=== PATIENT | male | born 1960 | race Caucasian/White ===

== ENCOUNTER 2019-10-14 15:11 | Outpatient (CLI) | payer MEDICARE, SELFPAY ==
--- NOTE | ~2019-10-14 | CT_ITS ---
EXAMINATION: CT soft tissue neck chest w DATE: 10/14/2019 16:10 INDICATION: Chronic hoarseness. TECHNIQUE: Computed tomography (CT) of the neck and chest was performed with 75 mL Omnipaque-350 intr avenous contrast. Automated exposure control and iterative reconstruction technique were employed. Th e dose-length product was 775.22 mGy-cm. COMPARISON: None FINDINGS: NECK CT: There are no pathologically enlarged lymph nodes. Left-sided vocal cord paralysis is noted. There is plaque in the proximal internal carotid arteries with less than 50% stenosis relative to nor mal distal artery lumen diameters. There is severe cervical spondylosis. CHEST CT: There is mild emphysema. There is mild atelectasis bilaterally. A calcified left lung nodul e and calcified left hilar lymph nodes are consistent with old granulomatous disease. There is a 4.5 x 1.8 cm mass in left upper lobe. There are airspace and groundglass opacities peripheral to the mass . There is confluent lymphadenopathy involving the left hilar, apical pulmonary window, and prevascul ar chains. The camilo mass measures 8.1 x 4.4 cm. There is mild stenosis of the left mainstem bronchus and left upper lobe bronchus. There is severe stenosis of left main pulmonary artery due to extrinsi c mass effect. The heart size is normal. No pericardial effusion. Calcifications in the spleen are co nsistent with old granulomatous disease. There is mild thoracic spondylosis. IMPRESSION: 1. Left lung upper lobe mass, consistent with primary bronchogenic carcinoma. Postobstructive pneumon ia in left upper lobe. 2. Bulky left hilar and mediastinal lymphadenopathy, consistent with metastatic disease. Bronchoscopy is recommended for diagnosis. 3. 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 Reviewed, dictated and finalized at location A. IMPRESSION: 1. Left lung upper lobe mass, consistent with primary bronchogenic carcinoma. P ostobstructive pneumonia in left upper lobe. 2. Bulky left hilar and mediastinal lymphadenopathy, consistent with metastatic disease. Bronchoscopy is recommended for diagnosis. 3. Left-sided vocal cord paralysis secondary to recurrent laryngeal nerve invol vement by mediastinal camilo metastatic disease.
== END 2019-10-14 15:12 | disposition home or self-care (01) ==
PROVIDERS: PCP Emergency Medicine; Visit Provider Otolaryngology
DX: R49.0 Dysphonia (principal); R91.8 Other nonspecific abnormal finding of lung field
CPT/HCPCS: 70491; 71260; Q9967

== ENCOUNTER 2020-01-05 04:17 | Inpatient (IN) | payer MEDICARE, SELFPAY ==
[2020-01-05] VITALS (38 sets, daily range): BP systolic 63–127; BP diastolic 26–106; PULSE 90–121; RESP 14–30; TEMP 35.8–36.9; O2SAT 89–100; BMI 21.8
--- NOTE | ~2020-01-05 | XR_ITS ---
EXAMINATION: XR chest 1V portable EXAM DATE: 01/05/2020 04:31 INDICATION: Cancer. Shortness of breath. Chest pain. TECHNIQUE: Portable AP frontal chest x-ray was obtained. Correlation is made to chest CT 10/14/2019. FINDINGS: Left suprahilar mass. The lungs are otherwise clear. There are no pleural effusions. The cardiomediastinal silhouette is within normal limits. There is no pneumothorax suspected. The bones and soft tissues are unremarkable. IMPRESSION: Left suprahilar mass. Reviewed, dictated and finalized at location A. IMPRESSION: Left suprahilar mass.
--- NOTE | ~2020-01-05 | XR_ITS ---
EXAMINATION: XR chest 1V portable EXAM DATE: 01/06/2020 05:57 INDICATION: Respiratory failure. Balloon pump. TECHNIQUE: Portable AP frontal chest x-ray was obtained. Comparison is made to prior examination from 01/05/2020. FINDINGS: Endotracheal tube tip is 6 centimeters above the marly (ideal range is between 2 to 5 cm). There is a nasogastric tube seen with tip collimated off the study, but below the left hemidiaphragm . There is extensive bilateral ARDS, edema or pneumonia. Underlying left suprahilar mass obscured by th is acute airspace disease. No pneumothorax or pleural effusion. Cardiomediastinal silhouette is cait l. There are mild bony degenerative changes. There is no significant interval change. IMPRESSION: 1. Extensive ARDS, edema or pneumonia. 2. Endotracheal tube could be safely advanced 1-2 cm. Reviewed, dictated and finalized at location A.
--- NOTE | ~2020-01-05 | XR_ITS ---
EXAMINATION: XR chest 1V portable DATE: 01/07/2020 13:39 INDICATION: Worsened oxygen requirements. TECHNIQUE: A single frontal view of the chest was obtained. COMPARISON: Chest single view at 4:56 AM, chest CT 10/14/2019 FINDINGS: There are airspace opacities in all lung zones bilaterally with a perihilar predominance, l eft worse than right. There is a left upper lobe mass. There is left hilar and mediastinal lymphadeno francisco. No pleural effusion or pneumothorax. The heart size is normal. The endotracheal tube tip is 7. 2 cm above the marly. The nasogastric tube tip is beyond the inferior margin of the radiograph, but at least to the stomach. An intra-aortic balloon pump is noted. IMPRESSION: 1. Worsened diffuse lung disease, likely a combination of pulmonary edema and left upper lobe postobs tructive pneumonia. 2. Left upper lobe mass, consistent with primary bronchogenic carcinoma. 3. Left hilar and mediastinal lymphadenopathy, consistent with metastatic disease. Reviewed, dictated and finalized at location A. IMPRESSION: 1. Worsened diffuse lung disease, likely a combination of pulmonary edema and l eft upper lobe postobstructive pneumonia. 2. Left upper lobe mass, consistent with primary bronchogenic carcinoma. 3. Left hilar and mediastinal lymphadenopathy, consistent with metastatic disea se.
--- NOTE | ~2020-01-05 | XR_ITS ---
EXAMINATION: XR chest 1V portable EXAM DATE: 01/07/2020 06:27 INDICATION: Respiratory failure. Balloon pump. TECHNIQUE: Portable AP frontal chest x-ray was obtained. Comparison is made to prior examination from 01/06/2020. FINDINGS: Endotracheal tube tip is 7 centimeters above the marly (ideal range is between 2 to 5 cm). There is a nasogastric tube seen with tip collimated off the study, but below the left hemidiaphragm . There is extensive bilateral ARDS, edema or pneumonia. Underlying left suprahilar mass obscured by th is acute airspace disease. No pneumothorax or pleural effusion. Cardiomediastinal silhouette is cait l. There are mild bony degenerative changes. This exam is better penetrated than the previous one, bu t likely without significant interval change. IMPRESSION: 1. Extensive ARDS, edema or pneumonia. 2. Endotracheal tube could be safely advanced 2 cm. Reviewed, dictated and finalized at location A.
--- NOTE | ~2020-01-05 | XR_ITS ---
EXAMINATION: XR chest 1V portable EXAM DATE: 01/08/2020 06:09 INDICATION: Respiratory failure. TECHNIQUE: Portable AP frontal chest x-ray was obtained. Comparison is made to prior examination from 01/06/2020. FINDINGS: Endotracheal tube tip is 7 centimeters above the marly, still below the clavicular head le baljit in this patient with chronic hyperinflation. There is a nasogastric tube seen with tip collimated off the study, but below the left hemidiaphragm. There is extensive bilateral ARDS, edema or pneumonia. Underlying left suprahilar mass obscured by th is acute airspace disease. Small bilateral pleural effusions. Cardiomediastinal silhouette is normal. There are mild bony degenerative changes. Compared to last couple of days, pleural effusions have been developing, difficult to determine any s ignificant change in airspace disease. IMPRESSION: 1. Extensive ARDS, edema or pneumonia. 2. Small pleural effusions. 3. Left suprahilar malignancy. Reviewed, dictated and finalized at location A.
--- NOTE | ~2020-01-05 | XR_ITS ---
EXAMINATION: XR chest ET placement, XR abdomen NG/feed tube insert DATE: 01/05/2020 17:24 INDICATION: Endotracheal tube placement and repositioning. Orogastric tube placement. TECHNIQUE: 1. Frontal view of the chest was obtained on 3 images. 2. Frontal view of the abdomen was obtained. COMPARISON: Chest radiograph dated 01/05/2020 at 9:28 AM FINDINGS: Chest: On the final image the endotracheal tube tip is positioned 6.4 cm above the marly. Again seen are di ffuse interstitial and groundglass airspace opacities throughout both lungs. More dense left hilar ma ss. No pleural effusion or pneumothorax. Heart size is normal. ABDOMEN: Nasogastric tube tip in the body of the stomach with proximal side-port at the level of gastroesophag eal junction. There is contrast opacification of the kidneys with excreted contrast in the bilateral renal collecting systems. Multiple calcified granulomata in the spleen. IMPRESSION: 1. Endotracheal tube tip 6.4 cm above the marly. Consider advancement by 4 cm. 2. Orogastric tube in the stomach. Could consider advancement by a couple centimeters place the proxi mal side-port below the level of the gastroesophageal junction. 3. Left hilar mass consistent with reported history of lung cancer. 4. Bilateral increased interstitial and groundglass opacities, left greater than right most likely as ymmetric pulmonary edema with differential including pneumonia. Reviewed, dictated and finalized at location A. IMPRESSION: 1. Endotracheal tube tip 6.4 cm above the marly. Consider advancement by 4 cm. 2. Orogastric tube in the stomach. Could consider advancement by a couple centi meters place the proximal side-port below the level of the gastroesophageal helena ction. 3. Left hilar mass consistent with reported history of lung cancer. 4. Bilateral increased interstitial and groundglass opacities, left greater daren n right most likely asymmetric pulmonary edema with differential including pneu monia.
--- NOTE | ~2020-01-05 | CT_ITS ---
EXAMINATION: CT brain wo con EXAM DATE: 01/05/2020 04:41 INDICATION: Lung cancer with brain metastases. Syncope. Fall. TECHNIQUE: Spiral CT of the head was performed without contrast. Axial, coronal and sagittal images were reviewed. The dose-length product (DLP) for this examination was 681.00 mGy-cm. The exposure w as tailored according to patient size, and iterative reconstruction (ASIR) was used as additional dos e reduction technique. There is no prior study for comparison. FINDINGS: There is no acute intraparenchymal hemorrhage. No evidence of intraparenchymal brain mass lesion. No evidence of acute infarction. There is no mass effect or midline shift. The ventricles are normal in size. There are no extra-axial collections. There are no acute calvarial fractures. T he orbits are unremarkable. Soft tissue is unremarkable. The visualized sinuses and mastoid air clifton ls are well aerated. IMPRESSION: 1. Unremarkable head CT examination. Reviewed, dictated and finalized at location A.
--- NOTE | ~2020-01-05 | XR_ITS ---
EXAMINATION: XR chest 1V portable EXAM DATE: 01/05/2020 09:36 INDICATION: Isolation precautions. Dyspnea. TECHNIQUE: Portable AP frontal chest x-ray was obtained. Comparison is made to prior examination from 430 a.m. same date. FINDINGS: Rapid development of extensive bilateral ARDS, edema or pneumonia. Underlying left suprahil ar mass now being obscured by this airspace disease. No pneumothorax or pleural effusion. Cardiomedia stinal silhouette is normal. There are mild bony degenerative changes. IMPRESSION: Rapid interval development of extensive ARDS, edema or pneumonia. Reviewed, dictated and finalized at location A.
--- NOTE | 2020-01-05 04:20 | ECG_ITS ---
Measurements Intervals [place] Rate: 109 P: 99 [place]: 146 QRS: 70 QRSD: 156 T: 99 QT: 369 QTc: 497 Interpretive Statements SINUS TACHYCARDIA RIGHT BUNDLE BRANCH BLOCK ANTEROLATERAL ST ELEVATION MYOCARDIAL INJURY- ACUTE BASELINE ARTIFACT- I, II, V1 ABNORMAL ECG Electronically Signed On 01-05-2020 12:21:19 CDT by Vincent Serna D.O.
--- NOTE | 2020-01-05 04:27 | ED.CHESTPAIN ---
HPI - Chest Pain General Chief Complaint: Chest Pain Stated Complaint: stemi History of Present Illness HPI narrative: Patient is a 59-year-old male who presents to the ER with chest pain. STEMI activated in the field by EMS. 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 He is undergoing chemotherapy at [facility]. Patient has history of congestive heart failure. No known coronary disease reported. Patient reports chest pain began at about 345. Its across the entirety of his chest and goes down both arms. Is associated with an episode of syncope where his states he struck his head on the ground. Initially for EMS patient was hypotensive, altered, and hypoxic. Related Data Home Medications Medication Instructions Recorded Confirmed albuterol sulfate 90 mcg/actuation 1 inhalation INHALATION Q4H 03/23/19 aerosol inhaler aspirin 81 mg tablet,delayed 81 mg PO DAILY 03/23/19 release fluticasone propionate 50 1 inhalation INHALATION BID each 03/23/19 mcg/actuation blister powder for inhalation hydrocodone 10 mg-acetaminophen 1 tablet PO Q8H PRN 03/23/19 325 mg tablet sildenafil 100 mg tablet 100 mg PO DAILY PRN 03/23/19 simvastatin 40 mg tablet 40 mg PO DAILY 03/23/19 umeclidinium 62.5 mcg/actuation 1 inhalation INHALATION DAILY 03/23/19 blister powder for inhalation Allergies Allergy/AdvReac Type Severity Reaction Status Date / Time No Known Allergies Allergy Unknown Unverified 05/05/19 09:43 Review of Systems Review of Systems: All systems reviewed & are unremarkable except as noted in HPI and below Constitutional: Constitutional: Reports chills, Denies fever(s) and Reports weakness Cardiovascular: Cardiovascular: Reports chest pain, Denies rapid heart rate and Reports radiating jaw, neck or arm pain Respiratory: Respiratory: Denies cough, Reports dyspnea and Denies wheezing Gastrointestinal: Gastrointestinal: Denies abdominal pain, Denies nausea and Denies vomiting Neurologic: Reports syncope PMFSH Past Medical History Medical History Chest pain in adult Chronic obstructive pulmonary disease VILLANUEVA (dyspnea on exertion) Dyslipidemia Lung cancer metastatic to brain Smoking Surgical History Surgical History History of back surgery History of hand surgery Family History Family History Sibling Patient's brother is in good health Mother Family history of lung cancer Father Family history of coronary artery disease Other Diabetes mellitus Family history of cardiovascular disease Social History Social History Smoking status: Current every day smoker Second hand tobacco smoke exposure: Yes Alcohol intake: current Exam Narrative: Exam Narrative: GENERAL: Chronically ill-appearing, well-nourished, and in no mild distress. HEAD: Normocephalic, atraumatic. EYES: PERRL and EOMI. ENT: Mucous membranes moist. CHEST: Clear to auscultation. No respiratory distress. HEART: Regular rate and rhythm. Normal peripheral pulses. ABDOMEN: Soft, nontender, nondistended. EXTREMITIES: Normal range of motion. No edema. SKIN: Cool, dry, no rash. NEURO: Alert and oriented x3. Course Vital Signs Vital signs: Vital Signs Temperature 96.4 F L 01/05/20 04:17 Pulse Rate 117 H 01/05/20 04:17 Respiratory Rate 30 H 01/05/20 04:17 Blood Pressure 118/106 H 01/05/20 04:17 Pulse Oximetry 89 L 01/05/20 04:17 Temperature 96.8 F L 01/05/20 04:30 Pulse Rate 112 H 01/05/20 04:54 Respiratory Rate 14 01/05/20 04:54 Blood Pressure 81/72 L 01/05/20 04:54 Pulse Oximetry 99 01/05/20 04:54 MDM - Chest Pain Lab Data Result diagrams: 01/05/20 04:28 01/05/20 04:28 Labs: Lab Results 01/05/20 01/05/20 01/05/20 Range/Units
--- NOTE | 2020-01-05 04:30 | PC.NURSE ---
PEr VORB ERP infuse 250 ml bolus NS
[2020-01-05 04:32] LABS: Basophils Absolute Auto 0.1 K/mm3 (0.0-0.1); Basophils Percent Auto 1.2 % (0.2-1.2); Eosinophils Absolute Auto 0.1 K/mm3 (0-0.3); Eosinophils Percent Auto 0.8 % (0-4.4); Hematocrit 34.9 % (42.0-52.0); Hemoglobin 11.4 g/dL (14.0-18.0); Immature Granulocyte Absolute 0.21 K/mm3 (0.00-0.031); Immature Granulocyte Percent A 1.8 % (0-0.5); Lymphocytes Absolute Auto 4.44 K/mm3 (0.9-3.2); Lymphocytes Percent Auto 37.2 % (18.3-44.2); Mean Corpuscular HGB Conc 32.7 g/dl (32-36); Mean Corpuscular Hemoglobin 30.2 pg (26-34); Mean Corpuscular Volume 92.3 fl (80-100); Mean Platelet Volume 9.9 fl (7.4-10.4); Monocytes Absolute Auto 0.4 K/mm3 (0.1-0.6); Monocytes Percent Auto 3.2 % (2.6-8.5); Neutrophils Absolute Auto 6.7 K/mm3 (1.3-6.7); Neutrophils Percent Auto 55.8 % (45.5-73.1); Platelet Count Result 294 k/mm3 (150-375); Red Blood Count 3.78 M/mm3 (4.6-6.20); Red Cell Distribution Width 14.9 % (11.5-14.5); White Blood Count 11.9 K/mm3 (4.5-10.0)
[2020-01-05 04:43] LABS: Prothrombin Time 13.1 Seconds (11.1-14.7)
[2020-01-05 04:44] LABS: Partial Thromboplastin Time 28.6 SECONDS (22.3-36.8)
[2020-01-05 04:46] LABS: Alanine Aminotransferase 30 U/L (4-50); Albumin Level 3.7 g/dL (3.5-5.1); Alkaline Phosphatase 79 U/L (38-126); Anion Gap 15 mmol/L (8-16); Aspartate Amino Transferase 49 U/L (17-59); Bilirubin,Total 0.4 mg/dL (0.2-1.3); Blood Urea Nitrogen 17 mg/dL (9-20); Calcium 9.5 mg/dL (8.4-10.2); Carbon Dioxide 24 mmol/L (22-30); Chloride 98 mmol/L (98-107); Cholesterol 108 mg/dL (0-200); Estimated Glomerular Filt Rate > 60; Glucose 266 mg/dL (75-110); HDL Direct 43 mg/dL; Sodium 137 mmol/L (137-145); Triglycerides 119 mg/dL (<150)
[2020-01-05 04:57] LABS: LDL Cholesterol Direct 53 mg/dL
--- NOTE | 2020-01-05 04:57 | WPDMODSED ---
Moderate Sedation Note-Pt Data Patient Data Allergies Allergy/AdvReac Type Severity Reaction Status Date / Time No Known Allergies Allergy Unknown Unverified 05/05/19 09:43 Home Medications Medication Instructions Recorded Confirmed Type albuterol sulfate 90 mcg/actuation 1 inhalation INHALATION Q4H 03/23/19 History aerosol inhaler aspirin 81 mg tablet,delayed 81 mg PO DAILY 03/23/19 History release fluticasone propionate 50 1 inhalation INHALATION BID each 03/23/19 History mcg/actuation blister powder for inhalation hydrocodone 10 mg-acetaminophen 1 tablet PO Q8H PRN 03/23/19 History 325 mg tablet sildenafil 100 mg tablet 100 mg PO DAILY PRN 03/23/19 History simvastatin 40 mg tablet 40 mg PO DAILY 03/23/19 History umeclidinium 62.5 mcg/actuation 1 inhalation INHALATION DAILY 03/23/19 History blister powder for inhalation Sedation/Anesthesia: No previous sedation/anesthesia problems (including family history). PMFSH Past Medical History Medical History Chest pain in adult Chronic obstructive pulmonary disease VILLANUEVA (dyspnea on exertion) Dyslipidemia Lung cancer metastatic to brain Smoking Surgical History Surgical History History of back surgery History of hand surgery Family History Family History Sibling Patient's brother is in good health Mother Family history of lung cancer Father Family history of coronary artery disease Other Diabetes mellitus Family history of cardiovascular disease Social History Social History Smoking status: Current every day smoker Second hand tobacco smoke exposure: Yes Alcohol intake: current Mod Sed Physical Exam Physical Exam Pre Procedural Exam: Normal: Appearance, Eyes, Ears, Nose, Neck, Throat, Airway, Lungs, Heart Size, Heart Rate, Heart Rhythm, Neuro Exam, Abdomen, Liver, Kidneys, Spleen, Breasts, Genitalia, Extremities and Skin Hours since solid foods: 8 Hours since liquid intake: 8 Internal Medicine - PN: Obj Da Vital Signs Vital Signs: Vital Signs - 24 hr 01/05/20 04:17 Temperature 35.8 C L Pulse Rate 117 H Respiratory Rate 30 H Blood Pressure 118/106 H Pulse Oximetry 89 L Labs CBC & Chem 7: 01/05/20 04:28 01/05/20 04:28 Labs: Laboratory Results - last 24 hr 01/05/20 01/05/20 04:28 04:28 PT 13.1 INR 1.0 APTT 28.6 Sodium 137 Potassium 4.0 Chloride 98 Carbon Dioxide 24 Anion Gap 15 BUN 17 Creatinine 0.90 Estim Creat Clear Calc Not Reportable Estimated GFR > 60 Glucose 266 H Calcium 9.5 Total Bilirubin 0.4 AST 49 ALT 30 Alkaline Phosphatase 79 Total Protein 6.0 L Albumin 3.7 Triglycerides 119 Cholesterol 108 HDL Direct 43 ASA Classification/Sedation ASA Classification/Sedation ASA Class: I Emergent: No Risks: Risks, benefits and alternatives explained and patient/family accepted plan for sedation. Patient re-evaluated immediately prior to sedation.
--- NOTE | 2020-01-05 04:57 | PC.NURSE ---
3882 untis of heparin administered IVP
[2020-01-05 05:11] LABS: Troponin I 0.261 ng/mL (0.000-0.034)
[2020-01-05 06:17] LABS: Activated Clotting Time 268 sec (74-137)
[2020-01-05 06:17] LABS: Activated Clotting Time 175 sec (74-137)
--- NOTE | 2020-01-05 06:37 | PM.IMHP ---
H&P: HPI History of Present Illness Date/Time: date of service 01/05/20 06:37 Chief complaint: stemi Narrative: Cesar Santiago is a 59 year old male with past medical history of metastatic lung cancer to the brain, bones who apparently at 3:00 a.m. in the morning fell down. His went to check on him and he was shaking. staring in the ceiling. his thought that he had seizure and called her daughter who lives close by. his daughter came and called EMS. EMS found ST elevation anterior leads with right bundle-branch block. he was rushed to the labeling associate and was found totally occluded left main coronary artery and underwent stenting of the left main into the LAD. it seems patient follows up with Dr. Grant for cancer care at [facility]. he is getting chemotherapy. Review of Systems Review of Systems: ROS unobtainable: Yes unobtainable due to medical condition ( Patient is in severe acute distress and also we put him on BiPAP.) Cardiovascular: Cardiovascular: Reports chest pain Respiratory: Respiratory: Reports dyspnea and Reports dyspnea on exertion PMFSH Past Medical History Medical History Chest pain in adult Chronic obstructive pulmonary disease VILLANUEVA (dyspnea on exertion) Dyslipidemia Lung cancer metastatic to brain Smoking Surgical History Surgical History History of back surgery History of hand surgery Family History Family History Sibling Patient's brother is in good health Mother Family history of lung cancer Father Family history of coronary artery disease Other Diabetes mellitus Family history of cardiovascular disease Social History Social History Smoking status: Current every day smoker Second hand tobacco smoke exposure: Yes Alcohol intake: current Meds Home Medications and Allergies Home Medications Medication Instructions Recorded Confirmed Type albuterol sulfate 90 mcg/actuation 1 inhalation INHALATION Q4H 03/23/19 History aerosol inhaler aspirin 81 mg tablet,delayed 81 mg PO DAILY 03/23/19 History release fluticasone propionate 50 1 inhalation INHALATION BID each 03/23/19 History mcg/actuation blister powder for inhalation hydrocodone 10 mg-acetaminophen 1 tablet PO Q8H PRN 03/23/19 History 325 mg tablet sildenafil 100 mg tablet 100 mg PO DAILY PRN 03/23/19 History simvastatin 40 mg tablet 40 mg PO DAILY 03/23/19 History umeclidinium 62.5 mcg/actuation 1 inhalation INHALATION DAILY 03/23/19 History blister powder for inhalation Allergies Allergy/AdvReac Type Severity Reaction Status Date / Time No Known Allergies Allergy Unknown Unverified 05/05/19 09:43 Vital Signs Vital Signs - 24 hr 01/05/20 04:17 01/05/20 04:30 01/05/20 04:54 Temperature 35.8 C L 36.0 C L Pulse Rate 117 H 113 H 112 H Respiratory Rate 30 H 24 H 14 Blood Pressure 118/106 H 83/72 L 81/72 L Pulse Oximetry 89 L 99 99 Exam Const: General: uncomfortable HENMT: Mouth: Yes moist mucous membranes Eyes: General: appearance normal, both eyes and all related structures Neck: Neck: supple Resp: Auscultation: crackles and rales Cardio: Rate: regular rate Heart sounds: no murmurs GI: Inspection: non-distended GI Palp: Yes Soft to palpation and No Guarding due to palpation present (GI) Skin: Other: pale Neuro: Speech: normal speech Other: moves all extremities. Psych: Affect: Anxious affect present H&P: Results Labs Labs: Short CBC 01/05/20 Range/Units 04:28 WBC 11.9 H (4.5-10.0) K/mm3 Hgb 11.4 L (14.0-18.0) g/dL Hct 34.9 L (42.0-52.0) % Plt Count 294 (150-375) k/mm3 [facility] 01/05/20 04:28 Sodium 137 Potassium 4.0 Chloride 98 Carbon Dioxide 24 BUN 17 Creatinine 0.90 Glucose 266 H Calcium 9.5 Cardiac Enzymes 01/05/20
--- NOTE | 2020-01-05 06:37 | WPDCARDPROC ---
Cardiac Cath Procedure Note Date of procedure:: 01/05/20 Performing physician:: Gregory Lomeli MD date of service 01/05/2020 Indication:: STEMI Brief clinical history:: 59-year-old male patient with past medical history metastatic lung cancer to the lungs and brain who was brought in for chest pain and was found to have right bundle-branch block and ST elevation anterior leads. Before coming to [facility] CT of the head was done shows no bleeding. Procedure Procedure performed:: 1-Moderate sedation that started at 5: 11amand ended at 6:38 a.m. with total duration 85 minutes using 3mg of Versed . The registered nurse was Gaurav Donis. 2-Selective left and right coronary angiogram. 3-Left heart catheterization with measurement of LVEDP and measurement of gradient across aortic valve. 4- LV angiogram. 5- intravascular ultrasound left main coronary artery into the LAD. 6- deploy a drug-eluting stent Quique resolute 4.5x15 covering left main into LAD. 7- balloon angioplasty of ostial left circumflex artery. 8- insertion of intra-aortic pump. we could not use Impella because of the small diameter of the peripheral arteries. We measured them at 4.5 mm. 9- peripheral arterial angiogram of distal aorta, bilateral common iliacs, external iliacs and bilateral femoral arteries. 10- selective Right common femoral arterial angiogram. Sedation/Medication given:: Moderate sedation. Access site:: Right common femoral artery. Estimated blood loss:: 10cc Procedure note:: After informed consent patient was brought in to [facility] with the was draped and prepped in usual manner. Moderate sedation was given and the right groin was infiltrated using 1% lidocaine. Five Andorran sheath was obtained using micropuncture needle and the modified Seldinger technique. Selective left coronary angiogram was done using JL4 catheter with the tip of the catheter placed in the left main coronary artery. Selective right coronary angiogram was done using JR4 catheter with the tip of the catheter placed to the right coronary artery. after that heparin was given, and 6 Andorran guide catheter CLS 3.5 was advanced to t hIt ise left main. coronary wire luge was advanced to the left circumflex artery. export catheter was run in the left circumflex artery into the left main. after that that luge wire was advanced to the LAD and export catheter was advanced as well for a 2nd run. however there was still a large clot burden. we would not use the Angiojet because we do not have 8 Andorran guide catheter. At that time balloon angioplasty done using 3 x 15 balloon with inflation under 20 atrm for 20 seconds. the clots went down through the LAD and we went back with the export catheter and restored CHUYITA flow 3. After that intravascular ultrasound the LAD into the left main was done and then deployment of a drug-eluting stent quique resolute 4.5x15 under the 14 PABLO for 25 seconds. after that we took a 2nd luge wire and advanced to the left circumflex artery and balloon angioplasty of the ostium left circumflex artery done using 3x15 noncompliant balloon with inflation done Under 20 atmospheres for 25 seconds.After that 5 Andorran pigtail catheter was advanced across the aortic valve into the left ventricle with measurement of LVEDP and measurement of gradient across aortic valve. LV angiogram was done. Then the pigtail catheter was pulled to the d distal or the bilateral iliac runoff was performed. Then after the insertion of intra-aortic balloon pump. Right common femoral arterial angiogram was done. Findings:: 1- left coronary artery is a large artery and totally occluded in the distal section. There was a big Thrombus occludingthe distal left main. there was CHUYITA flow 0 to the LAD and to left circumflex artery 2- left anterior descending artery is a large artery that runs and wraps around the apex. is free of disease. large diagonal branch that is free disease. 3- leftcircumflex artery is a large artery Wit
[2020-01-05] MEDS: NOREPINEPHRINE 8 MG/D5W 250 ML 8 MG/250 ML BAG 56.3 MG IV CONT (07:30)
[2020-01-05] MEDS: SODIUM CHLORIDE 0.9% IV 500 ML IV CONT ×2 (08:34→17:19)
[2020-01-05] MEDS: SODIUM CHLORIDE 0.9% IV 1,000 ML 75 ML IV CONT (08:36)
--- NOTE | 2020-01-05 10:08 | PC.NURSE ---
Pt admitted to ICU 2 at 0730 from [facility], arrives with IABP to [facility] 1:1, bedside report from CCL RN. Levo infusing at 20mcg/min, pt on BIPAP, answers questions. MD Pathak and Marina to bedside.
[2020-01-05] MEDS: VASOPRESSIN INJ 100 UNITS in DEXTROSE 5% 95 ML IV CONT (10:18)
[2020-01-05] MEDS: HEPARIN SOD/D5W 100 UNITS/ML 25,000 UNITS/250 ML BAG 8 UNITS IV CONT (10:18)
[2020-01-05] MEDS: ASPIRIN 81 MG CHEWABLE TABLET PO (10:28)
[2020-01-05] MEDS: TICAGRELOR 90 MG TABLET 180 MG PO (10:29)
[2020-01-05] MEDS: NOREPINEPHRINE 8 MG/D5W 250 ML 8 MG/250 ML BAG 65.6 MG IV CONT ×2 (12:26→16:43)
[2020-01-05] MEDS: EPTIFIBATIDE 0.75 MG/ML 75 MG/100 ML VIAL 10.4 MG IV CONT ×2 (12:26→22:09)
[2020-01-05 13:08] LABS: Alveolar/Arterial O2 Gradient 314.4 mmHg; Base Excess ABG -6.8 mEq/l (+/-2.0); Fractional Inspired Oxygen 60 %; HCO3 ABG 17.2 mEq/l (22.0-26.0); Oxygen Content ABG 15.1 %vol (16.0-22.0); Oxygen Saturation ABG 95.9 % (95.0-100.0); Oxyhemoglobin 93.8 % THb (90.0-100.0); PCO2 ABG 29.7 mmHg (35.0-45.0); PO2 ABG 80.7 mmHg (80.0-100.0); PO2 FiO2 Ratio Arterial Blood 1.34 %; Total Hemoglobin 11.4 g/dL (12.0-18.0)
[2020-01-05 13:09] LABS: Device NON-INVASIVE VENT; Non-Invasive Expiratory Pressure 5 CMH2O; Non-Invasive Inspiratory Pressure 8 CMH2O; Non-Invasive Vent Rate 10 /MIN; Site Drawn ARTLINE
[2020-01-05 13:13] LABS: Basophils Percent Auto 0.2 % (0.2-1.2); Eosinophils Percent Auto 0.1 % (0-4.4); Hematocrit 30.1 % (42.0-52.0); Hemoglobin 10.2 g/dL (14.0-18.0); Immature Granulocyte Absolute 0.25 K/mm3 (0.00-0.031); Lymphocytes Absolute Auto 1.45 K/mm3 (0.9-3.2); Lymphocytes Percent Auto 11.5 % (18.3-44.2); Mean Corpuscular HGB Conc 33.9 g/dl (32-36); Mean Corpuscular Hemoglobin 29.7 pg (26-34); Mean Corpuscular Volume 87.8 fl (80-100); Monocytes Absolute Auto 0.5 K/mm3 (0.1-0.6); Monocytes Percent Auto 3.8 % (2.6-8.5); Neutrophils Absolute Auto 10.4 K/mm3 (1.3-6.7); Neutrophils Percent Auto 82.4 % (45.5-73.1); Platelet Count Result 324 k/mm3 (150-375); Red Blood Count 3.43 M/mm3 (4.6-6.20); Red Cell Distribution Width 14.8 % (11.5-14.5); White Blood Count 12.6 K/mm3 (4.5-10.0)
[2020-01-05 13:24] LABS: INR 1.1; Prothrombin Time 14.2 Seconds (11.1-14.7)
[2020-01-05 13:26] LABS: Partial Thromboplastin Time 70.8 SECONDS (22.3-36.8)
[2020-01-05 13:28] LABS: Alanine Aminotransferase 179 U/L (4-50); Albumin Level 3.3 g/dL (3.5-5.1); Alkaline Phosphatase 82 U/L (38-126); Anion Gap 11 mmol/L (8-16); Bilirubin,Total 0.5 mg/dL (0.2-1.3); Blood Urea Nitrogen 21 mg/dL (9-20); Calcium 8.6 mg/dL (8.4-10.2); Carbon Dioxide 19 mmol/L (22-30); Chloride 105 mmol/L (98-107); Estimated Glomerular Filt Rate > 60; Glucose 202 mg/dL (75-110); Magnesium 1.7 mg/dL (1.6-2.3); Phosphorus 5.7 mg/dL (2.5-4.5); Potassium 4.7 mmol/L (3.4-5.0); Sodium 135 mmol/L (137-145)
--- NOTE | 2020-01-05 13:29 | WPDCNINT ---
Assessment and Plan Assessment and plan (1) Acute respiratory failure: Code(s): J96.00 - Acute respiratory failure, unspecified whether with hypoxia or hypercapnia Status: Acute Assessment and Plan: acute respiratory failure with flash pulmonary edema likely related to cardiogenic shock - patient currently on BiPAP ABGs and chest x-ray reviewed - oxygenation and ventilation on ABGs are adequate - patient was intubated secondary to cardiogenic shock, elevated lactic acid levels, bilateral infiltrates on chest x-ray worsened since this morning likely pulmonary edema - sedated with fentanyl and Versed infusion, maintain RASS of 0 to -2 (2) ST elevation (STEMI) myocardial infarction: Code(s): I21.3 - ST elevation (STEMI) myocardial infarction of unspecified site Status: Acute Assessment and Plan: patient presented with chest pain, EKG showed ST-elevation in the anterior lateral leads. STEMI team was alerted and patient was taken of for coronary angiogram which showed total distal occlusion of the left main status post stenting of mid to distal left main into the LAD and balloon angioplasty of ostial left circumflex. Intra-aortic balloon pump was inserted. Augmented balloon pump pressures were significantly low in the 60s and 70s systolic, - An arterial line was inserted, is not correlating with the augmented pressures on the balloon pump. - continue heparin with balloon pump - Patient remains on Integrilin infusion (3) Cardiogenic shock: Code(s): R57.0 - Cardiogenic shock Status: Acute Assessment and Plan: patient status post stent placement to left main, balloon pump, hypotensive, cardiogenic shock - Lactic acid is elevated, patient was given IV fluid bolus, continue monitor repeat lactic acid - on Levophed and vasopressin, will target mean arterial pressures greater than 70 mmHg - chest x-ray reviewed showed bilateral edema /ARDS - urine output has been adequate and will continue to follow - will add phenylephrine as patient's as patient's lactic acid is increasing. discussed with Dr. Braswell (4) Lung cancer: Code(s): C34.90 - Malignant neoplasm of unspecified part of unspecified bronchus or lung Status: Acute Assessment and Plan: known history of lung cancer with Mets to the bone and brain Additional Plan Discussed with Martita patient's daughter, updated her with patient's condition and plan of care. I updated her regarding the heart attack, the severe hypotension and cardiogenic shock requiring 3 pressors, requiring intubation, elevated lactic acid. I discussed with her code status and she stated that his wishes were to revive him and he wanted to be a full code. code status: Full code critical care time spent: 55 minutes Rig Hand Consult Note Consult date: 01/05/20 Time Seen: 07:40 Reason for consult: STEMI post cardiac catheterization with stent x1 to distal left main HPI: Cesar Santiago is a 59 year old male with past medical history of chronic obstructive pulmonary disease, COPD Shah[place], lung cancer with metastases to the brain and bones, history of smoking presented the ED on 01/05/2020 with complains of chest pain, STEMI was activated the field by EMS, EKG showed ST-elevation in the anterior lateral leads. STEMI team was alerted and patient was taken of for coronary angiogram which showed total distal occlusion of the left main status post stenting of mid to distal left main into the LAD and balloon angioplasty of ostial left circumflex. Intra-aortic balloon pump was inserted and patient was transferred to the ICU. patient seen and examined upon arrival to the ICU, patient was on Levophed at 30 mcg/min via peripheral access. central line was emergently inserted. Patient's Augmentin pressures in the balloon pump was reading in the 60s to 70s systolic. an arterial line was inserted which was reading better pressures. Was also started on
[2020-01-05 13:32] LABS: Lactic Acid Reflex 6.2 mmol/L (0.7-2.1)
[2020-01-05 13:37] LABS: Aspartate Amino Transferase 1178 U/L (17-59)
[2020-01-05] MEDS: SODIUM BICARBONATE 8.4% 50 MEQ/50 ML VIAL IV PUSH (14:34)
[2020-01-05 16:10] LABS: Reflex Lactic Acid Yes or No Add Lactic
[2020-01-05 16:40] LABS: Alveolar/Arterial O2 Gradient 293.7 mmHg; Base Excess ABG -7.6 mEq/l (+/-2.0); Fractional Inspired Oxygen 60 %; HCO3 ABG 17.5 mEq/l (22.0-26.0); Oxygen Content ABG 14.7 %vol (16.0-22.0); Oxyhemoglobin 94.8 % THb (90.0-100.0); PCO2 ABG 34.2 mmHg (35.0-45.0); PO2 ABG 96.5 mmHg (80.0-100.0); PO2 FiO2 Ratio Arterial Blood 1.61 %; Total Hemoglobin 10.9 g/dL (12.0-18.0); pH ABG 7.328 (7.350-7.450)
[2020-01-05 16:42] LABS: Device VENTILATOR; Site Drawn ARTLINE
[2020-01-05 16:43] LABS: Arterial Blood Gas PEEP 5 cmH2O; Arterial Blood Gas Tidal Volume 500 ml; Arterial Blood Gas Vent Mode CMV; Arterial Blood Gas Ventilator rate 18 /MIN
[2020-01-05] MEDS: FENTANYL 2,500MCG/NS250ML(*CRX 2,500 MCG/250 ML BAG 10 MCG IV CONT (16:44)
[2020-01-05 16:52] LABS: Partial Thromboplastin Time 73.6 SECONDS (22.3-36.8)
[2020-01-05 16:59] LABS: Lactic Acid 7.8 mmol/L (0.7-2.1)
[2020-01-05] MEDS: PHENYLEPHRINE HCL INJ 50 MG in DEXTROSE 5% IN WATER 250 ML/245 ML BAG 30 ML IV CONT (17:17)
--- NOTE | 2020-01-05 17:24 | WPDPROCEDUR ---
Procedures Intubation Intubation Date: 01/05/20 A pre-procedural Time-Out was completed immediately before starting the procedure and confirmed: Patient Identification, Site, Procedure, Patient Position and the Availability of Requisite Equipment: Yes Sedative: etomidate Paralytic: rocuronium Laryngoscope: fiber optic video scope Assist device used: fiber optic device ET tube size: 8 Tube secured depth (cm): 24 Tube secured location: lips Tube placement confirmation: visualized tube passing through cords, equal breath sounds bilaterally, no breath sounds over epigastrium and confirmation by capnometry Patient tolerated procedure: well Intubation complications: none
--- NOTE | 2020-01-05 17:25 | WPDPROCEDUR ---
Procedures Central Line Placement Left Femoral: Central Line Date: 01/05/20 Discussed w/ the patient/family/POA,the placement of a central venous catheter, including its clinical necessity/indication & associated potential risks, benifits and alternatives.: Yes The patient/family/POA understand(s) and acknowledge(s) the need to proceed with central venous catheter insertion as an important element of the patient's clinical management.: Yes Time Out Performed: Yes Patient Position: supine Patient placed on monitor/pulse ox: Yes Provider Prep: mask, sterile gown, sterile gloves, Max. sterile barrier precautions and hand hygiene with conventional soap/water or alcohol based hand rub Central line prep: 2% Chlorhexidine scrub and sterile full body sheet applied Local anesthesia used: lidocaine 1% Amount of anesthesia used (ml): 3 Sterile US Technique with sterile gel/sterile probe covers: Yes Central line lumen inserted: triple Guyanese: 16 Length (cm): 16 Depth of Insertion (cm): 16 Post procedure: sutured in place, good blood return, all ports aspirated, flushed, capped, tegaderm, hemostatic disc, antimicrobial disc and aseptic technique maintained throughout procedure Patient tolerated procedure: well Complications: none
--- NOTE | 2020-01-05 17:26 | P.PCNBED_ITS ---
Procedures Arterial Line Arterial Line Date: 01/05/20 Discussed with the patient/family/POA, the placement of an arterial catheter, including its clinical necessity/indication and associated potential risks, benefits and alternatives.: Yes Patient/family/POA and/or understands and acknowledges the need to proceed with the arterial catheter insertion as an important element of the patient's clinical management.: Yes Time Out Performed: Yes Patient Position: supine Research Consultant Prep: sterile gown, sterile gloves, mask and hat Site: left and femoral Site Prep: chlorhexidine and sterile drape Skin Anesthesia: 1% lidocaine Technique used: ultrasound-guided Size (Gauge): 16 Length: 12 cm Closure/Dressing: suture, antimicrobial disc and tegaderm Patient tolerated procedure: well Complications: none
[2020-01-05 18:10] LABS: Glucose Point of Care 197 (65-105)
--- NOTE | 2020-01-05 18:13 | PC.NURSE ---
Late entry due to patient condition; [employer] Lelo Gamboa aware that IABP waveform dampened with minimal augmentation of pressures.; does not correlate with NIBP or ABP to L femoral artery; console was changed out and similar complications with new system. Optic sensor failure alarm prompted to switch to pressure sensor via A-line set up with pressure bag/transducer. Remained unable to augment IABP pressures or obtain reliable waveform so system switched to L groin femoral arterial line. Adequate waveform noted on IABP with appropriate augmentation at that time. MD Pierson and [employer] aware. Vasopressors remain on high doses, family aware.
[2020-01-05 18:23] LABS: SARS-CoV-2 RNA PCR Negative
[2020-01-05 21:12] LABS: Add Urine Microscopic? YES; Appearance Urine Clear (Clear); Bacteria Urine Trace /hpf; Bilirubin Urine Negative (Negative); Blood Urine 2+ (Negative); Color Urine Yellow (Yellow); Glucose Urine UA Negative (Negative); Ketones Urine Negative (Negative); Leukocyte Esterase Ur Negative LEU/UL (Negative); Mucus Urine Moderate /lpf; Nitrate Urine Negative (Negative); Protein Urine 1+ mg/dL (Negative); RBC Urine 51-75 /hpf (0-2); Squamous Epithelial Cell Urine Rare /hpf (Few); Urobilinogen Urine Negative mg/dL (<2.0)
[2020-01-05] MEDS: TICAGRELOR 90 MG TABLET PO (21:37)
[2020-01-05] MEDS: hetaSTARCH 6%/NACL 500 ML 250 ML IV CONT (22:09)
[2020-01-05 22:50] LABS: Partial Thromboplastin Time 84.4 SECONDS (22.3-36.8)
[2020-01-06] VITALS (61 sets, daily range): BP systolic 82–128; BP diastolic 40–79; PULSE 82–113; RESP 18–100; TEMP 36.1–37.1; O2SAT 92–100; BMI 21.8
[2020-01-06] MEDS: NOREPINEPHRINE 8 MG/D5W 250 ML 8 MG/250 ML BAG 65.6 MG IV CONT ×2 (00:35→07:31)
[2020-01-06 01:43] LABS: Glucose Point of Care 120 (65-105)
[2020-01-06 04:38] LABS: Alveolar/Arterial O2 Gradient 151.9 mmHg; Base Excess ABG -5.6 mEq/l (+/-2.0); Carboxyhemoglobin 0.2 % THb (0-2.0); Fractional Inspired Oxygen 40 %; HCO3 ABG 18.4 mEq/l (22.0-26.0); Methemoglobin ABG 0.6 %THb (0-1.5); Oxygen Content ABG 11.9 %vol (16.0-22.0); Oxygen Saturation ABG 97.6 % (95.0-100.0); PCO2 ABG 30.2 mmHg (35.0-45.0); PO2 ABG 98.6 mmHg (80.0-100.0); PO2 FiO2 Ratio Arterial Blood 2.46 %; Reduced Hemoglobin 4.2 %THb (0-5.0); Total Hemoglobin 8.8 g/dL (12.0-18.0); pH ABG 7.402 (7.350-7.450)
[2020-01-06 04:39] LABS: Arterial Blood Gas PEEP 5 cmH2O; Arterial Blood Gas Vent Mode CMV; Arterial Blood Gas Ventilator rate 18 /MIN; Device VENTILATOR; Site Drawn ARTLINE
[2020-01-06 04:40] LABS: Arterial Blood Gas Tidal Volume 500 ml
[2020-01-06 04:42] LABS: Basophils Percent Auto 0.3 % (0.2-1.2); Hematocrit 23.5 % (42.0-52.0); Hemoglobin 7.9 g/dL (14.0-18.0); Immature Granulocyte Absolute 0.06 K/mm3 (0.00-0.031); Immature Granulocyte Percent A 0.6 % (0-0.5); Lymphocytes Absolute Auto 2.77 K/mm3 (0.9-3.2); Lymphocytes Percent Auto 27.4 % (18.3-44.2); Mean Corpuscular HGB Conc 33.6 g/dl (32-36); Mean Corpuscular Hemoglobin 29.7 pg (26-34); Mean Corpuscular Volume 88.3 fl (80-100); Mean Platelet Volume 10.6 fl (7.4-10.4); Monocytes Absolute Auto 0.7 K/mm3 (0.1-0.6); Monocytes Percent Auto 7.2 % (2.6-8.5); Neutrophils Absolute Auto 6.5 K/mm3 (1.3-6.7); Neutrophils Percent Auto 64.5 % (45.5-73.1); Platelet Count Result 168 k/mm3 (150-375); Red Blood Count 2.66 M/mm3 (4.6-6.20); Red Cell Distribution Width 14.7 % (11.5-14.5); White Blood Count 10.1 K/mm3 (4.5-10.0)
[2020-01-06 04:54] LABS: Partial Thromboplastin Time 66.1 SECONDS (22.3-36.8)
[2020-01-06 04:57] LABS: Lactic Acid Reflex 5.9 mmol/L (0.7-2.1)
[2020-01-06 05:23] LABS: Albumin Level 2.3 g/dL (3.5-5.1); Alkaline Phosphatase 53 U/L (38-126); Anion Gap 9 mmol/L (8-16); Bilirubin,Total 0.5 mg/dL (0.2-1.3); Blood Urea Nitrogen 28 mg/dL (9-20); Calcium 7.7 mg/dL (8.4-10.2); Carbon Dioxide 22 mmol/L (22-30); Chloride 105 mmol/L (98-107); Estimated CRCL calculation 88 ml/min; Estimated Glomerular Filt Rate > 60; Glucose 134 mg/dL (75-110); Magnesium 1.5 mg/dL (1.6-2.3); Sodium 136 mmol/L (137-145)
[2020-01-06 05:50] LABS: Alanine Aminotransferase 3348 U/L (4-50); Aspartate Amino Transferase 4514 U/L (17-59)
[2020-01-06] MEDS: PHENYLEPHRINE HCL INJ 50 MG in DEXTROSE 5% IN WATER 250 ML/245 ML BAG 15 ML IV CONT (06:23)
--- NOTE | 2020-01-06 07:00 | ECG_ITS ---
Measurements Intervals [place] Rate: 100 P: 85 RI: 129 QRS: 111 QRSD: 111 T: 102 QT: 336 QTc: 434 Interpretive Statements SINUS TACHYCARDIA LOW QRS VOLTAGE IN PRECORDIAL LEADS INCOMPLETE RIGHT BUNDLE BRANCH BLOCK ANTEROLATERAL MYOCARDIAL INFARCTION , PROBABLY RECENT ABNORMAL ECG Electronically Signed On 01-06-2020 9:38:09 CDT by Vincent Serna D.O.
[2020-01-06] MEDS: HEPARIN SODIUM 5,000 UNITS/ML VIAL 2500 UNITS IV PUSH (07:33)
[2020-01-06 07:40] LABS: Reflex Lactic Acid Yes or No Add Lactic
[2020-01-06] MEDS: MAGNESIUM SULF 2 GM/WATER 50ML 2 GM/50 ML BAG IVPB (07:44)
[2020-01-06] MEDS: SODIUM CHLORIDE 0.9% IV 1,000 ML 999 ML IV CONT (07:50)
[2020-01-06] MEDS: ASPIRIN 81 MG CHEWABLE TABLET PO (08:12)
[2020-01-06] MEDS: TICAGRELOR 90 MG TABLET PO ×2 (08:13→22:22)
[2020-01-06 08:14] LABS: Lactic Acid 4.9 mmol/L (0.7-2.1)
[2020-01-06] MEDS: SODIUM CHLORIDE 0.9% IV 1,000 ML 70 ML IV CONT ×2 (08:44→23:15)
--- NOTE | 2020-01-06 08:49 | PC.NURSE ---
All pressors and sedation charted at 0800 on 01/06/20, were charted as the rate that was currently infusing on the pump during my initial assessment
[2020-01-06 09:19] LABS: Glucose Point of Care 78 (65-105)
[2020-01-06 11:54] LABS: Glucose Point of Care 99 (65-105)
--- NOTE | 2020-01-06 12:04 | WPDINTPN ---
Progress Note: A&P Assessment and Plan (1) Acute respiratory failure: Code(s): J96.00 - Acute respiratory failure, unspecified whether with hypoxia or hypercapnia Status: Acute Assessment and Plan: acute respiratory failure with flash pulmonary edema likely related to cardiogenic shock. Intubated on 01/05/2020 - patient on CMV mode, peep of 8 in 40% FiO2 - oxygenation and ventilation on ABGs are adequate - sedated with fentanyl and Versed infusion, maintain RASS of 0 to -2 (2) ST elevation (STEMI) myocardial infarction: Code(s): I21.3 - ST elevation (STEMI) myocardial infarction of unspecified site Status: Acute Assessment and Plan: patient presented with chest pain, EKG showed ST-elevation in the anterior lateral leads. STEMI team was alerted and patient was taken of for coronary angiogram which showed total distal occlusion of the left main status post stenting of mid to distal left main into the LAD and balloon angioplasty of ostial left circumflex. Intra-aortic balloon pump was inserted. Augmented balloon pump pressures were significantly low in the 60s and 70s systolic, - An arterial line was inserted, is not correlating with the augmented pressures on the balloon pump. - continue heparin with balloon pump - continue Brilinta and aspirin, - discussed with cardiology at length, they will be removing the pump as it is nonfunctional. Systemic heparin infusion is on hold (3) Cardiogenic shock: Code(s): R57.0 - Cardiogenic shock Status: Acute Assessment and Plan: patient status post stent placement to left main, balloon pump, hypotensive, cardiogenic shock - Lactic acid is elevated, patient was given IV fluid bolus, continue monitor repeat lactic acid - on Levophed and vasopressin, and Michael-Synephrine. will target mean arterial pressures greater than 70 mmHg for adequate end organ perfusion - will wean Michael-Synephrine to off 1st. - chest x-ray reviewed showed bilateral edema /ARDS - urine output has been adequate and will continue to follow - lactic acid gradually trending down, continue to monitor (4) Lung cancer: Code(s): C34.90 - Malignant neoplasm of unspecified part of unspecified bronchus or lung Status: Acute Assessment and Plan: known history of lung cancer with Mets to the bone and brain (5) Elevated LFTs: Code(s): R79.89 - Other specified abnormal findings of blood chemistry Status: Acute Assessment and Plan: likely secondary to shock liver, hypotension and cardiogenic shock - will maintain arterial pressures greater than 70 mmHg for adequate end organ perfusion Additional Plan Discussed with Martita patient's daughter in rounds today, updated her with patient's condition and plan of care. I updated her regarding the heart attack, the severe hypotension and cardiogenic shock requiring 3 pressors, requiring intubation, elevated lactic acid. daughter also discussed with lead advisor this morning and made him a DNR. code status: DNR critical care time spent: 41 minutes Subjective Date/time seen: 01/06/20 12:04 Interval history: Reason for consult: STEMI post cardiac catheterization with stent x1 to distal left main, cardiogenic shock, acute respiratory failure 01/06/2020: Patient remains intubated on 40% FiO2 and 5 of PEEP on CMV mode of ventilation. Hemoglobin dropped to 7.9. Patient has balloon pump which is probably not functioning well. Patient remains on Levophed, vasopressin and Michael-Synephrine. Patient is sedated with fentanyl and Versed infusion. on heparin infusion for the intra-aortic balloon pump. Urine output has been adequate, afebrile Review of Systems Review of Systems: ROS unobtainable: Yes unobtainable due to endotracheal tube and unobtainable due to medical condition Exam Const: General: comfortable and no acute distress HENMT: Other: ETT in place Eyes: Sclera: sclerae
--- NOTE | 2020-01-06 12:25 | PM.PNCARD ---
Progress Note: A&P Assessment and Plan (1) Cardiogenic shock: Code(s): R57.0 - Cardiogenic shock Status: Acute Assessment and Plan: Continue hemodynamic support using medications. The balloon pump passed to come out because it is not functioning and has minute factoring defect. once the PTT is normal then we can pull it out. so far his blood pressure is stable on the current medications. Long discussion with his daughter Martita was on bedside and she is the [id number] as she states, I explained to her the critical situation and condition of her dad. I explained the overall picture given the underlying advanced cancer does not look good. Before the cardiac catheterization I talked to the patient and he informed me that the oncologist give him 1 year to live with chemotherapy. Given his advanced lung cancer we discussed with the daughter that tight to avoid more advanced therapies for cardiogenic shock. As well as trying to avoid CPR. Daughter understands totally and she agrees with that. We agree to change the code status to DNR. We agree to continue this current medical therapy. We agreed to hold off any advanced therapies for cardiogenic shock. This was a long emotional discussion happened between me, Martita the daughter and Tory the nurse was witnessing. Total time spent on this patient was about 55 minutes (2) ST elevation (STEMI) myocardial infarction: Code(s): I21.3 - ST elevation (STEMI) myocardial infarction of unspecified site Status: Acute Assessment and Plan: continue aspirin and Brilinta. (3) Lung cancer: Code(s): C34.90 - Malignant neoplasm of unspecified part of unspecified bronchus or lung Status: Acute Assessment and Plan: Advanced lung cancer with metastasis to the bones and brain. Subjective Date/time seen: date of service 01/06/20 12:25 remains intubated and on multiple pressors including Levophed, phenylephrine and vasopressin. The balloon pump is not working appropriately and has many factoring defect. Currently on hold. He was bleeding through his NG tube but stopped after we stop the Integrilin and after stopping the heparin. Review of Systems Review of Systems: ROS unobtainable: Yes unobtainable due to endotracheal tube Exam Const: General: no acute distress HENMT: Other: Endotracheal tube Eyes: Sclera: sclerae normal Neck: Thyroid: thyroid normal Carotids: no bruits Resp: Auscultation: crackles Cardio: Rate: regular rate Rhythm: regular rhythm Heart sounds: no murmurs GI: Inspection: non-distended Auscultation: bowels sounds normal : Other: Calderon catheter Urinary Catheter: Urinary Catheter: patent and draining Skin: General skin exam: normal color Wounds: wound noted Neuro: Other: intubated and ventilated Psych: Other: cannot be assessed because of endotracheal tube. Objective Data Vital Signs Vital Signs: Vital Signs - 24 hr 01/05/20 12:26 01/05/20 13:00 01/05/20 13:35 Temperature Pulse Rate 115 H 112 H 114 H Respiratory Rate 26 H 28 H Blood Pressure 126/45 L 111/41 L Pulse Oximetry 98 97 01/05/20 14:00 01/05/20 15:00 01/05/20 15:47 Temperature Pulse Rate 115 H 106 H 115 H Respiratory Rate 27 H 30 H Blood Pressure 123/60 117/62 Pulse Oximetry 98 100 92 01/05/20 16:00 01/05/20 16:43 01/05/20 16:44 Temperature 36.9 C Pulse Rate 112 H 110 H 104 H Respiratory Rate 22 H 18 Blood Pressure 122/60 69/26 L Pulse Oximetry 100 01/05/20 17:00 01/05/20 17:57 01/05/20 18:00 Temperature Pulse Rate 90 97 97 Respiratory Rate 18 18 Blood Pressure 117/62 126/53 L Pulse Oximetry 100 100 100 01/05/20 19:00 01/05/20 20:00 01/05/20 20:10 Temperature 36.4 C 36.4 C Pulse Rate 93 95 97 Respiratory Rate 18 18 Blood Pressure 81/35 L 82/38 L Pulse Oximetry 100 100 100 01/05/20 21:00 01/05/20 22:00 01/05/20 23:00 Temperature 36.3
[2020-01-06 13:37] LABS: Basophils Absolute Auto 0.1 K/mm3 (0.0-0.1); Basophils Percent Auto 0.5 % (0.2-1.2); Hematocrit 21.4 % (42.0-52.0); Hemoglobin 7.1 g/dL (14.0-18.0); Immature Granulocyte Absolute 0.07 K/mm3 (0.00-0.031); Immature Granulocyte Percent A 0.8 % (0-0.5); Lymphocytes Absolute Auto 3.01 K/mm3 (0.9-3.2); Mean Corpuscular HGB Conc 33.2 g/dl (32-36); Mean Corpuscular Volume 90.3 fl (80-100); Mean Platelet Volume 10.5 fl (7.4-10.4); Monocytes Absolute Auto 0.7 K/mm3 (0.1-0.6); Monocytes Percent Auto 7.9 % (2.6-8.5); Neutrophils Absolute Auto 5.3 K/mm3 (1.3-6.7); Neutrophils Percent Auto 57.8 % (45.5-73.1); Platelet Count Result 119 k/mm3 (150-375); Red Blood Count 2.37 M/mm3 (4.6-6.20); Red Cell Distribution Width 14.9 % (11.5-14.5); White Blood Count 9.1 K/mm3 (4.5-10.0)
[2020-01-06 13:48] LABS: Hypochromasia 1+ (NORMAL); Platelet Estimate Adequate (Adequate)
[2020-01-06 13:49] LABS: Anisocytosis 1+ (NORMAL); Poikilocytosis 1+ (NORMAL)
[2020-01-06 13:50] LABS: Partial Thromboplastin Time 41.2 SECONDS (22.3-36.8)
[2020-01-06] MEDS: NOREPINEPHRINE 8 MG/D5W 250 ML 8 MG/250 ML BAG 52.5 MG IV CONT (13:52)
[2020-01-06] MEDS: hetaSTARCH 6%/NACL 500 ML 250 ML IV CONT (13:58)
--- NOTE | 2020-01-06 15:43 | P.OP_ITS ---
Procedure Note - Detailed Date of procedure: 01/06/20 Pre-op diagnosis: stemi Description of procedure: IABP removal note: Please see Dr. Lomeli's note re IABP. PTT 42 at 1329 acceptable for IABP removal at bedside. After discussing plan with family at bedside, they were again in agreement and then escorted by the Correctional Counselor/Case Manager to the waiting room. After all needed materials were gathered, the IABP placed on standby and then stopped just prior to removal. Using sterile gloves sutures removed and device clamps releas ed. Balloon was then pulled back as far as it would allow into the sheath. This sheath and the balloon were then removed and approximately 3 beats external arterial flow was allowed prior to application of manual pressure. Excellent hemostasis was achieved during initial pressure for approximately 8 minutes. There was no dopplerable pulse during this period of time indicating adequate arterial compression. Subsequently, manual pressure was then transitioned to his nurse with plans to hold for at least 30-35 minute total compression or until there was no evidence of bleeding hematoma. The balloon pump was removed without complication. Again, prior to removal the potential implications were discussed including deterioration of his hemodynamic status. However, due to malfunction concerns and lack of perceived benefit the device had to be removed. Counseled under no circumstances should a sandbag be utilized for hemostasis. Manual compression or if necessary Femstop hemostasis device. Surgeon: Francisco Braswell MD
[2020-01-06] MEDS: FENTANYL 2,500MCG/NS250ML(*CRX 2,500 MCG/250 ML BAG 10 MCG IV CONT (17:35)
[2020-01-06] MEDS: VASOPRESSIN INJ 100 UNITS in DEXTROSE 5% 95 ML IV CONT (17:45)
[2020-01-06] MEDS: DEXTROSE 50% 25 GM/50 ML SYRINGE IV PUSH (18:02)
[2020-01-06 18:18] LABS: Glucose Point of Care 64 (65-105)
[2020-01-06 18:18] LABS: Glucose Point of Care 267 (65-105)
[2020-01-06 18:18] LABS: Glucose Point of Care 52 (65-105)
[2020-01-06] MEDS: NOREPINEPHRINE 8 MG/D5W 250 ML 8 MG/250 ML BAG 45 MG IV CONT (18:33)
[2020-01-07] VITALS (62 sets, daily range): BP systolic 85–109; BP diastolic 49–70; PULSE 93–133; RESP 17–25; TEMP 36.5–37.7; O2SAT 91–100
[2020-01-07] MEDS: NOREPINEPHRINE 8 MG/D5W 250 ML 8 MG/250 ML BAG 37.5 MG IV CONT (01:04)
[2020-01-07 05:00] LABS: Alveolar/Arterial O2 Gradient 112.9 mmHg; Base Excess ABG -3.2 mEq/l (+/-2.0); Carboxyhemoglobin 0.3 % THb (0-2.0); Fractional Inspired Oxygen 40 %; HCO3 ABG 20.7 mEq/l (22.0-26.0); Methemoglobin ABG 0.5 %THb (0-1.5); Oxygen Content ABG 10.2 %vol (16.0-22.0); Oxygen Saturation ABG 98.8 % (95.0-100.0); Oxyhemoglobin 96.7 % THb (90.0-100.0); PCO2 ABG 32.1 mmHg (35.0-45.0); PO2 ABG 135.4 mmHg (80.0-100.0); PO2 FiO2 Ratio Arterial Blood 3.38 %; Reduced Hemoglobin 2.5 %THb (0-5.0); pH ABG 7.428 (7.350-7.450)
[2020-01-07 05:02] LABS: Arterial Blood Gas PEEP 8 cmH2O; Arterial Blood Gas Tidal Volume 500 ml; Arterial Blood Gas Vent Mode CMV; Arterial Blood Gas Ventilator rate 18 /MIN; Device VENTILATOR; Site Drawn ARTLINE; Total Hemoglobin 7.3 g/dL (12.0-18.0)
[2020-01-07 05:04] LABS: Mean Corpuscular HGB Conc 33.5 g/dl (32-36); Mean Corpuscular Hemoglobin 29.9 pg (26-34); Mean Corpuscular Volume 89.3 fl (80-100); Mean Platelet Volume 11.5 fl (7.4-10.4); Platelet Count Result 78 k/mm3 (150-375); Red Blood Count 2.24 M/mm3 (4.6-6.20); White Blood Count 6.5 K/mm3 (4.5-10.0)
[2020-01-07 05:16] LABS: Lactic Acid Reflex 3.2 mmol/L (0.7-2.1)
[2020-01-07 05:19] LABS: Hemoglobin 6.7 g/dL (14.0-18.0)
[2020-01-07 05:29] LABS: Albumin Level 2.1 g/dL (3.5-5.1); Alkaline Phosphatase 51 U/L (38-126); Anion Gap 1 mmol/L (8-16); Bilirubin,Total 0.8 mg/dL (0.2-1.3); Blood Urea Nitrogen 27 mg/dL (9-20); Calcium 7.2 mg/dL (8.4-10.2); Carbon Dioxide 26 mmol/L (22-30); Chloride 105 mmol/L (98-107); Estimated CRCL calculation 100 ml/min; Estimated Glomerular Filt Rate > 60; Glucose 139 mg/dL (75-110); Magnesium 1.8 mg/dL (1.6-2.3); Potassium 4.7 mmol/L (3.4-5.0); Sodium 132 mmol/L (137-145)
[2020-01-07 06:01] LABS: Alanine Aminotransferase > 3750 U/L (4-50); Aspartate Amino Transferase 3948 U/L (17-59)
[2020-01-07 06:19] LABS: Magnesium 1.8 mg/dL (1.6-2.3)
[2020-01-07 07:05] LABS: Partial Thromboplastin Time 37.8 SECONDS (22.3-36.8)
--- NOTE | 2020-01-07 07:06 | WPDCDIQUERY2 ---
CDI Query Clarification Request Dr Pathak you have documented flash pulmonary edema likely related to cardiogenic shock. There is no code for flash pulmonary edema. Please further clarify acuity of pulmonary edema: Acute, Chronic, Acute on Chronic, Unable to determine. <Claribel Dyer RN - Last Filed: 01/07/20 07:10> Provider Comments Acute pulmonary edema due to cardiogenic shock and acute STEMI <Mazin Pathak MD - Last Filed: 01/07/20 11:06>
[2020-01-07 07:09] LABS: D Dimer 2.41 ug/mL (<0.48)
[2020-01-07] MEDS: NOREPINEPHRINE 8 MG/D5W 250 ML 8 MG/250 ML BAG 56.3 MG IV CONT (07:36)
[2020-01-07 07:53] LABS: Fibrinogen 315 mg/dl (215-510)
[2020-01-07 08:00] LABS: Prothrombin Time > 120.0 Seconds (11.1-14.7)
[2020-01-07] MEDS: SODIUM CHLORIDE 0.9% IV 250 ML 30 ML IV CONT ×2 (08:00→10:04)
[2020-01-07 08:01] LABS: Reflex Lactic Acid Yes or No Add Lactic
[2020-01-07 08:04] LABS: INR > 19.0
[2020-01-07] MEDS: TICAGRELOR 90 MG TABLET PO (08:38)
[2020-01-07] MEDS: ASPIRIN 81 MG CHEWABLE TABLET PO (08:38)
--- NOTE | 2020-01-07 08:41 | PC.NURSE ---
All sedation charted at 0830 on 01/06/20, were charted as the rate that was currently infusing on the pump during my initial assessmen
[2020-01-07] MEDS: SODIUM CHLORIDE 0.9% IV 1,000 ML 70 ML IV CONT ×2 (09:05→22:49)
[2020-01-07] MEDS: PHYTONADIONE ADULT INJ 10 MG in DEXTROSE 5% IN WATER 50 ML 68 MG IVPB (09:18)
--- NOTE | 2020-01-07 11:06 | WPDINTPN ---
Progress Note: A&P Assessment and Plan (1) Acute respiratory failure: Code(s): J96.00 - Acute respiratory failure, unspecified whether with hypoxia or hypercapnia Status: Acute Assessment and Plan: acute respiratory failure with flash pulmonary edema likely related to cardiogenic shock. Intubated on 01/05/2020 - patient on CMV mode, peep of 8 in 40% FiO2, patient with ARDS physiology, will target low tidal volumes. - oxygenation and ventilation on ABGs are adequate - sedated with fentanyl and Versed infusion, maintain RASS of 0 to -2 (2) ST elevation (STEMI) myocardial infarction: Code(s): I21.3 - ST elevation (STEMI) myocardial infarction of unspecified site Status: Acute Assessment and Plan: patient presented with chest pain, EKG showed ST-elevation in the anterior lateral leads. STEMI team was alerted and patient was taken of for coronary angiogram which showed total distal occlusion of the left main status post stenting of mid to distal left main into the LAD and balloon angioplasty of ostial left circumflex. Intra-aortic balloon pump was inserted. Augmented balloon pump pressures were significantly low in the 60s and 70s systolic, - An arterial line was inserted, is not correlating with the augmented pressures on the balloon pump. - continue Brilinta and aspirin, - Balloon pump was removed on 01/06/2020 (3) Cardiogenic shock: Code(s): R57.0 - Cardiogenic shock Status: Acute Assessment and Plan: patient status post stent placement to left main, balloon pump, hypotensive, cardiogenic shock - Lactic acid is elevated, patient was given IV fluid bolus, continue monitor repeat lactic acid - on Levophed and vasopressin, will target mean arterial pressures greater than 70 mmHg for adequate end organ perfusion - OFF Michael-Synephrine - chest x-ray reviewed showed bilateral edema /ARDS - urine output has been adequate and will continue to follow - lactic acid gradually trending down, continue to monitor (4) Lung cancer: Code(s): C34.90 - Malignant neoplasm of unspecified part of unspecified bronchus or lung Status: Acute Assessment and Plan: known history of lung cancer with Mets to the bone and brain (5) Elevated LFTs: Code(s): R79.89 - Other specified abnormal findings of blood chemistry Status: Acute Assessment and Plan: LFTs trending down likely secondary to shock liver, hypotension and cardiogenic shock - will maintain arterial pressures greater than 70 mmHg for adequate end organ perfusion (6) Coagulopathy: Code(s): D68.9 - Coagulation defect, unspecified Status: Acute Assessment and Plan: elevated INR > 19 - anemia with hemoglobin of 6.7 this morning - transfusing 1 unit of packed RBCs and 1 unit of FFP, - vitamin K 10 mg IVPB was infused Additional Plan Discussed with Martita patient's daughter in rounds today, updated her with patient's condition and plan of care. I updated regarding patient's condition and plan of care. I did tell her that he is still very critical and condition is guarded code status: DNR critical care time spent: 39 minutes Subjective Date/time seen: 01/07/20 11:06 Interval history: Reason for consult: STEMI post cardiac catheterization with stent x1 to distal left main, cardiogenic shock, acute respiratory failure 01/07/2020: Patient remains intubated, CMV mode of ventilation, 40% FiO2, peep of 8. Hemoglobin dropped to 6.7, platelets of 78, INR > 19.0. Balloon pump was removed yesterday, patient off heparin infusion. Remains on Levophed 28 mcg/min and vasopressin at 0.04 units/min.OFF Michael-Synephrine. Urine output has been adequate, patient is afebrile. Tolerating trickle tube feeds at 10 mL/hour. Patient sedated with fentanyl and Versed Review of Systems Review of Systems: ROS unobtainable: Yes unobtainable due to endotracheal tube and unobtain
--- NOTE | 2020-01-07 11:31 | PCDIET ---
Nutrition Follow-Up Complete: Nutrition Diagnosis: Inadequate oral intake related to oral intubation as evidenced by NPO status. Nutrition Goal: Patient to meet estimated nutritional needs. Goal in progress. Patient has been tolerating Vital 1.2 at 10mL/hr. MD ordered to leave tube feedings at 10mL/hr for now. If tube feedings able to advance, recommend goal of 65mL/hr. Last recorded weight is 72 kg which is increased from last review. +I/O. Bowel Motility: BM x 1 on 01/06/20. Labs Reviewed: Hgb (6.7), Hct (20.0), Na (132), Alb (2.1), Hernandez Ca (8.72) Meds Noted: Fentanyl, Versed, Levophed, Vasopressin, Phytonadione, NS at 30mL/hr Additional Notes: No skin issues, other than bilateral groin incisions. Will continue to monitor with same goal. Nutrition Monitoring and Evaluation: Follow up every Friday/Friday. Follow daily in ICU rounds.
[2020-01-07] MEDS: NOREPINEPHRINE 8 MG/D5W 250 ML 8 MG/250 ML BAG 52.5 MG IV CONT ×3 (12:25→22:40)
[2020-01-07 12:35] LABS: Glucose Point of Care 133 (65-105)
[2020-01-07 12:42] LABS: Basophils Percent Auto 0.3 % (0.2-1.2); Hematocrit 23.1 % (42.0-52.0); Hemoglobin 7.5 g/dL (14.0-18.0); Immature Granulocyte Absolute 0.06 K/mm3 (0.00-0.031); Lymphocytes Absolute Auto 1.17 K/mm3 (0.9-3.2); Lymphocytes Percent Auto 18.9 % (18.3-44.2); Mean Corpuscular HGB Conc 32.5 g/dl (32-36); Mean Corpuscular Volume 92.4 fl (80-100); Mean Platelet Volume 11.4 fl (7.4-10.4); Monocytes Absolute Auto 0.4 K/mm3 (0.1-0.6); Monocytes Percent Auto 6.3 % (2.6-8.5); Neutrophils Absolute Auto 4.5 K/mm3 (1.3-6.7); Neutrophils Percent Auto 73.5 % (45.5-73.1); Nucleated Red Blood Cells Absolute Auto 0.1 K/mm3 (0.0-0.012); Nucleated Red Blood Cells Perc 1.8 % (0.0-0.2); Platelet Count Result 63 k/mm3 (150-375); Red Cell Distribution Width 14.8 % (11.5-14.5); White Blood Count 6.2 K/mm3 (4.5-10.0)
[2020-01-07 12:43] LABS: Immature Platelet Fraction Pct 9.5 % (0.9-11.2); Mean Platelet Volume 11.9 fl (7.4-10.4); Platelet Count Result 63 k/mm3 (150-375)
[2020-01-07 12:52] LABS: INR 1.9
--- NOTE | 2020-01-07 15:14 | PM.PNCARD ---
Progress Note: A&P Assessment and Plan (1) Cardiogenic shock: Code(s): R57.0 - Cardiogenic shock Status: Acute Assessment and Plan: On 3 vasopressors including Levophed, Neosynephrine and Vasopressin. Has shock liver, worsening anemia and thrombocytopenia. Being followed by postmaster, Dr. Pathak. On dual antiplatelet agents. Poor prognosis. (2) ST elevation (STEMI) myocardial infarction: Code(s): I21.3 - ST elevation (STEMI) myocardial infarction of unspecified site Status: Acute Assessment and Plan: LM thromobotic occlusion, s/p PCI to LM and PTCA to ostial LCx. 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 Was given 1 year to live by his oncologist and was per patient. Subjective Date/time seen: 01/07/20 15:14 Patient is sedated on mechanical ventilation. Exam Const: General: no acute distress Neck: Neck: no JVD Carotids: no bruits Resp: Auscultation: no crackles, no rales, no rhonchi and no wheezes Other: Coarse breath sounds bilaterally Cardio: Rate: regular rate Rhythm: regular rhythm Heart sounds: no murmurs GI: Inspection: non-distended Extrem: Right lower extremity: no edema Left lower extremity: no edema Objective Data Vital Signs Vital Signs: Vital Signs - 24 hr 01/06/20 15:28 01/06/20 15:30 01/06/20 15:35 Temperature Pulse Rate 112 H 112 H 113 H Pulse Rate [Right Pedal (Dorsalis Pedis)] Respiratory Rate 18 18 18 Blood Pressure 82/68 L 91/72 L 100/79 Pulse Oximetry 100 100 100 01/06/20 15:40 01/06/20 15:45 01/06/20 15:50 Temperature Pulse Rate 105 H 108 H 109 H Pulse Rate [Right Pedal (Dorsalis Pedis)] Respiratory Rate 18 100 H 18 Blood Pressure 103/74 102/72 101/77 Pulse Oximetry 100 100 100 01/06/20 15:55 01/06/20 16:00 01/06/20 16:10 Temperature 97.4 F L Pulse Rate 108 H 107 H 104 H Pulse Rate [Right Pedal (Dorsalis Pedis)] Respiratory Rate 18 18 18 Blood Pressure 102/76 109/67 99/73 L Pulse Oximetry 100 100 100 01/06/20 16:33 01/06/20 16:40 01/06/20 17:10 Temperature 97.4 F L 97.4 F L Pulse Rate 111 H 108 H 105 H Pulse Rate [Right Pedal (Dorsalis Pedis)] Respiratory Rate 18 18 Blood Pressure 102/59 L 94/72 L 96/74 L Pulse Oximetry 100 100 01/06/20 17:27 01/06/20 17:32 01/06/20 17:35 Temperature Pulse Rate 107 H 102 H 103 H Pulse Rate [Right Pedal (Dorsalis Pedis)] Respiratory Rate 18 18 Blood Pressure 100/57 L Pulse Oximetry 01/06/20 17:45 01/06/20 18:00 01/06/20 18:10 Temperature Pulse Rate 106 H 106 H 107 H Pulse Rate [Right Pedal (Dorsalis Pedis)] Respiratory Rate 18 18 Blood Pressure 102/59 L 112/67 99/79 L Pulse Oximetry 100 100 01/06/20 18:19 01/06/20 18:33 01/06/20 19:00 Temperature 97.2 F L Pulse Rate 105 H 108 H 105 H Pulse Rate [Right Pedal (Dorsalis Pedis)] 105 H Respiratory Rate 18 Blood Pressure 109/64 108/64 96/73 L Pulse Oximetry 100 01/06/20 19:31 01/06/20 20:00 01/06/20 20:58 Temperature 97.2 F L Pulse Rate 103 H 108 H 108 H Pulse Rate [Right Pedal (Dorsalis Pedis)] Respiratory Rate 18 Blood Pressure 106/63 109/47 L Pulse Oximetry 100 100 01/06/20 21:00 01/06/20 22:00 01/06/20 22:23 Temperature 97.8 F 98.0 F Pulse Rate 108 H 108 H 108 H Pulse Rate [Right Pedal (Dorsalis Pedis)] Respiratory Rate 18 18 Blood Pressure 92/71 L 92/68 L 92/68 L Pulse Oximetry 100 100 01/06/20 22:47 01/07/20 00:00 01/07/20 01:04 Temperature Pulse Rate 107 H 110 H 110 H Pulse Rate [Right Pedal (Dorsalis Pedis)] Respiratory Rate 18 Blood Pressure 94/70 L 90/56 L Pulse Oximetry 100 100 01/07/20 01:35 01/07/20 02:00 01/07/20 03:29 Temperature 97.7 F Pulse Rate 109 H 108 H 108 H Pulse Rate [Right Pedal (Dorsalis Pedis)] Respiratory Rate 18 1
--- NOTE | 2020-01-07 16:15 | PC.NURSE ---
Pt noted to only have 45ml of urine out since 0700. Notified Dr. Pathak to irrigate cage, if no results give 500ml of hetastarch. Irrigated cage and obtained 400 ml of urine
[2020-01-07 18:27] LABS: Glucose Point of Care 131 (65-105)
[2020-01-07] MEDS: hetaSTARCH 6%/NACL 500 ML 250 ML IV CONT (18:27)
[2020-01-07] MEDS: FENTANYL 2,500MCG/NS250ML(*CRX 2,500 MCG/250 ML BAG 15 MCG IV CONT (18:39)
--- NOTE | 2020-01-07 21:22 | PC.NURSE ---
01/07/20 PM dose of Brilinta not administered. Clarified with Dr Serna, due to low platelets and red/bloody secretions from ET tube OK to hold tonight's dose. Reassess administration in AM based on secretions.
[2020-01-08] VITALS (41 sets, daily range): BP systolic 87–105; BP diastolic 60–78; PULSE 103–115; RESP 16–26; TEMP 36.5–37.4; O2SAT 91–98
[2020-01-08 00:34] LABS: Glucose Point of Care 107 (65-105)
[2020-01-08] MEDS: NOREPINEPHRINE 8 MG/D5W 250 ML 8 MG/250 ML BAG 52.5 MG IV CONT (03:41)
[2020-01-08 05:15] LABS: Base Excess ABG -5.9 mEq/l (+/-2.0); Carboxyhemoglobin 0.3 % THb (0-2.0); Fractional Inspired Oxygen 50 %; HCO3 ABG 18.9 mEq/l (22.0-26.0); Methemoglobin ABG 0.5 %THb (0-1.5); Oxygen Content ABG 10.4 %vol (16.0-22.0); Oxygen Saturation ABG 91.5 % (95.0-100.0); Oxyhemoglobin 87.5 % THb (90.0-100.0); PCO2 ABG 34.3 mmHg (35.0-45.0); PO2 ABG 62.9 mmHg (80.0-100.0); PO2 FiO2 Ratio Arterial Blood 1.26 %; Reduced Hemoglobin 11.7 %THb (0-5.0); Site Drawn ARTLINE; Total Hemoglobin 8.4 g/dL (12.0-18.0); pH ABG 7.359 (7.350-7.450)
[2020-01-08 05:16] LABS: Arterial Blood Gas PEEP 8 cmH2O; Arterial Blood Gas Tidal Volume 450 ml; Arterial Blood Gas Vent Mode CMV; Arterial Blood Gas Ventilator rate 18 /MIN; Device VENTILATOR
[2020-01-08 05:18] LABS: Hemoglobin 7.5 g/dL (14.0-18.0); Immature Platelet Fraction Pct 13.3 % (0.9-11.2); Mean Corpuscular HGB Conc 32.6 g/dl (32-36); Mean Corpuscular Hemoglobin 30.5 pg (26-34); Mean Corpuscular Volume 93.5 fl (80-100); Mean Platelet Volume 12.8 fl (7.4-10.4); Platelet Count Result 45 k/mm3 (150-375); Red Blood Count 2.46 M/mm3 (4.6-6.20); White Blood Count 6.3 K/mm3 (4.5-10.0)
[2020-01-08 05:26] LABS: Partial Thromboplastin Time 35.6 SECONDS (22.3-36.8)
[2020-01-08 05:35] LABS: Albumin Level 2.1 g/dL (3.5-5.1); Alkaline Phosphatase 57 U/L (38-126); Anion Gap 6 mmol/L (8-16); Bilirubin,Total 2.1 mg/dL (0.2-1.3); Blood Urea Nitrogen 36 mg/dL (9-20); Calcium 7.1 mg/dL (8.4-10.2); Carbon Dioxide 24 mmol/L (22-30); Chloride 100 mmol/L (98-107); Estimated CRCL calculation 80 ml/min; Estimated Glomerular Filt Rate > 60; Glucose 136 mg/dL (75-110); Magnesium 1.9 mg/dL (1.6-2.3); Sodium 130 mmol/L (137-145)
[2020-01-08 05:36] LABS: Lactic Acid Reflex 5.3 mmol/L (0.7-2.1)
[2020-01-08 06:41] LABS: Aspartate Amino Transferase 3947 U/L (17-59)
[2020-01-08 06:51] LABS: Alanine Aminotransferase > 3750 U/L (4-50)
--- NOTE | 2020-01-08 07:20 | PM.PNCARD ---
Progress Note: A&P Assessment and Plan (1) Cardiogenic shock: Code(s): R57.0 - Cardiogenic shock Status: Acute Assessment and Plan: On 3 vasopressors including Levophed, Neosynephrine and Vasopressin. Has shock liver, worsening anemia and thrombocytopenia. Being followed by datastage architect, Dr. Pathak. On dual antiplatelet agents. Held Brilinta one dose last evening due to significant amount of bleeding from ET suction. May resume Brilinta if ET suction shows minimal to no bloody secretions. Poor prognosis. DNR status. (2) ST elevation (STEMI) myocardial infarction: Code(s): I21.3 - ST elevation (STEMI) myocardial infarction of unspecified site Status: Acute Assessment and Plan: LM thromobotic occlusion, s/p PCI to LM and PTCA to ostial LCx. 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 Was given 1 year to live by his oncologist and was per patient. Subjective Date/time seen: 01/08/20 07:20 Patient is sedated on mechanical ventilation. Nurse called my last evening due to significant bleeding from ET suction. Had Brilinta held one dose. Exam Const: General: no acute distress Neck: Neck: no JVD Carotids: no bruits Resp: Auscultation: no crackles, no rales, no rhonchi and no wheezes Other: Coarse breath sounds bilaterally Cardio: Rate: regular rate Rhythm: regular rhythm Heart sounds: no murmurs GI: Inspection: non-distended Extrem: Right lower extremity: no edema Left lower extremity: no edema Objective Data Vital Signs Vital Signs: Vital Signs - 24 hr 01/07/20 07:29 01/07/20 07:36 01/07/20 07:50 Temperature Pulse Rate 104 H 104 H 95 Respiratory Rate Blood Pressure 90/52 L 90/52 L Pulse Oximetry 99 01/07/20 07:59 01/07/20 08:00 01/07/20 08:15 Temperature 99.1 F 99.1 F 98.8 F Pulse Rate 102 H 101 H 106 H Respiratory Rate 18 18 18 Blood Pressure 89/50 L 89/51 L 89/51 L Pulse Oximetry 100 95 98 01/07/20 08:32 01/07/20 08:39 01/07/20 08:40 Temperature Pulse Rate 105 H 104 H 102 H Respiratory Rate 21 H 21 H Blood Pressure 99/60 L 93/56 L Pulse Oximetry 01/07/20 09:06 01/07/20 09:15 01/07/20 10:00 Temperature 99.4 F Pulse Rate 95 103 H 100 Respiratory Rate 21 H 22 H Blood Pressure 109/68 100/61 103/64 Pulse Oximetry 98 95 01/07/20 10:02 01/07/20 10:15 01/07/20 10:19 Temperature 99.2 F 98.6 F 98.6 F Pulse Rate 95 95 96 Respiratory Rate 22 H 20 24 H Blood Pressure 105/66 104/66 103/65 Pulse Oximetry 96 96 95 01/07/20 10:23 01/07/20 10:24 01/07/20 10:25 Temperature Pulse Rate 99 99 99 Respiratory Rate 18 18 Blood Pressure 99/61 L 99/61 L Pulse Oximetry 01/07/20 11:00 01/07/20 11:19 01/07/20 11:30 Temperature 99.1 F 98.9 F Pulse Rate 102 H 107 H 96 Respiratory Rate 23 H 25 H Blood Pressure 101/63 102/63 Pulse Oximetry 92 96 99 01/07/20 11:35 01/07/20 12:00 01/07/20 12:11 Temperature 98.9 F 98.9 F Pulse Rate 107 H 133 H 133 H Respiratory Rate 23 H 24 H Blood Pressure 105/66 105/67 105/67 Pulse Oximetry 93 93 01/07/20 12:12 01/07/20 12:13 01/07/20 12:25 Temperature Pulse Rate 133 H 133 H 126 H Respiratory Rate 18 18 Blood Pressure 105/67 88/58 L Pulse Oximetry 01/07/20 12:30 01/07/20 12:45 01/07/20 13:00 Temperature Pulse Rate 125 H 121 H 119 H Respiratory Rate 21 H 19 21 H Blood Pressure Pulse Oximetry 01/07/20 13:30 01/07/20 14:00 01/07/20 15:39 Temperature Pulse Rate 116 H 113 H 104 H Respiratory Rate 20 18 19 Blood Pressure 96/63 L Pulse Oximetry 99 95 01/07/20 16:00 01/07/20 17:11 01/07/20 17:15 Temperature Pulse Rate 104 H 105 H 105 H Respiratory Rate 19 Blood Pressure 96/64 L 92/65 L 92/65 L Pulse Oximetry 97 01/07/20 17:37 01/07/20 18:00 01/07/20 18:08 Binta
[2020-01-08 07:48] LABS: INR 2.3; Prothrombin Time 24.4 Seconds (11.1-14.7)
[2020-01-08 07:49] LABS: Partial Thromboplastin Time 36.7 SECONDS (22.3-36.8)
[2020-01-08 08:14] LABS: Reflex Lactic Acid Yes or No Add Lactic
[2020-01-08] MEDS: NOREPINEPHRINE 8 MG/D5W 250 ML 8 MG/250 ML BAG 46.9 MG IV CONT (08:33)
[2020-01-08] MEDS: PHYTONADIONE ADULT INJ 10 MG in DEXTROSE 5% IN WATER 50 ML 100 MG IVPB (08:37)
--- NOTE | 2020-01-08 08:43 | WPDINTPN ---
Progress Note: A&P Assessment and Plan (1) Acute respiratory failure: Code(s): J96.00 - Acute respiratory failure, unspecified whether with hypoxia or hypercapnia Status: Acute Assessment and Plan: acute respiratory failure with acute pulmonary edema likely related to cardiogenic shock. Intubated on 01/05/2020 - patient on CMV mode, peep of 8 in 50% FiO2, patient with ARDS physiology, will target low tidal volumes. - oxygenation and ventilation on ABGs are adequate - sedated with fentanyl and Versed infusion, maintain RASS of 0 to -2 - patient febrile, a thick retention secretions, started on vancomycin and cefepime. Blood cultures have been obtained - will add bronchodilators (2) ST elevation (STEMI) myocardial infarction: Code(s): I21.3 - ST elevation (STEMI) myocardial infarction of unspecified site Status: Acute Assessment and Plan: patient presented with chest pain, EKG showed ST-elevation in the anterior lateral leads. STEMI team was alerted and patient was taken of for coronary angiogram which showed total distal occlusion of the left main status post stenting of mid to distal left main into the LAD and balloon angioplasty of ostial left circumflex. Intra-aortic balloon pump was inserted. Augmented balloon pump pressures were significantly low in the 60s and 70s systolic, - An arterial line was inserted, is not correlating with the augmented pressures on the balloon pump. - continue Brilinta and aspirin, - Balloon pump was removed on 01/06/2020 (3) Cardiogenic shock: Code(s): R57.0 - Cardiogenic shock Status: Acute Assessment and Plan: patient status post stent placement to left main, balloon pump, hypotensive, cardiogenic shock - Lactic acid is elevated, patient was given IV fluid bolus, continue monitor repeat lactic acid - remains on maximum doses off Levophed and vasopressin, will target mean arterial pressures greater than 70 mmHg for adequate end organ perfusion - OFF Michael-Synephrine - chest x-ray reviewed showed bilateral edema /ARDS - urine output has been adequate and will continue to follow - lactic acid persists, likely related to decreased clearance due to liver dysfunction from shock liver (4) Lung cancer: Code(s): C34.90 - Malignant neoplasm of unspecified part of unspecified bronchus or lung Status: Acute Assessment and Plan: known history of lung cancer with Mets to the bone and brain (5) Elevated LFTs: Code(s): R79.89 - Other specified abnormal findings of blood chemistry Status: Acute Assessment and Plan: LFTs trending down likely secondary to shock liver, hypotension and cardiogenic shock - will maintain arterial pressures greater than 70 mmHg for adequate end organ perfusion (6) Coagulopathy: Code(s): D68.9 - Coagulation defect, unspecified Status: Acute Assessment and Plan: patient status post 1 unit of packed RBCs, 1 unit of FFP and vitamin K on 01/07/2020 - hemoglobin 7.5, INR of 2.3, platelet count 45. - Patient having reddish urine, red tinged tracheal secretions, coffee-ground drainage from OG tube. - 1 unit of FFP and vitamin K - transfuse 1 unit of platelet Additional Plan Discussed with Martita patient's daughter, updated her with patient's condition and plan of care. she is aware that patient is in critical condition and prognosis is guarded code status: DNR critical care time spent: 36 minutes Subjective Date/time seen: 01/08/20 08:43 Interval history: Reason for consult: STEMI post cardiac catheterization with stent x1 to distal left main, cardiogenic shock, acute respiratory failure 01/08/2020: Patient seen examined this morning in the ICU, remains intubated, CMV mode of ventilation, 50% FiO2, peep of 8. Patient remains on Levophed 28 mcg/min and vasopressin 0.04 units/min. Urine output has declined, patient febrile overnight. LFT
[2020-01-08] MEDS: ASPIRIN 81 MG CHEWABLE TABLET PO (08:51)
[2020-01-08 08:54] LABS: Lactic Acid 4.7 mmol/L (0.7-2.1)
[2020-01-08 11:31] LABS: Glucose Point of Care 52 (65-105)
[2020-01-08 11:32] LABS: Glucose Point of Care 160 (65-105)
[2020-01-08] MEDS: VASOPRESSIN INJ 100 UNITS in DEXTROSE 5% 95 ML IV CONT (11:42)
[2020-01-08 13:39] LABS: Hematocrit 21.2 % (42.0-52.0); Immature Platelet Fraction Pct 9.5 % (0.9-11.2); Mean Corpuscular HGB Conc 32.1 g/dl (32-36); Mean Corpuscular Volume 93.4 fl (80-100); Mean Platelet Volume 11.8 fl (7.4-10.4); Platelet Count Result 72 k/mm3 (150-375); Red Blood Count 2.27 M/mm3 (4.6-6.20); Red Cell Distribution Width 15.1 % (11.5-14.5); White Blood Count 5.2 K/mm3 (4.5-10.0)
[2020-01-08 13:48] LABS: Hemoglobin 6.8 g/dL (14.0-18.0)
[2020-01-08 13:49] LABS: Prothrombin Time 22.2 Seconds (11.1-14.7)
[2020-01-08] MEDS: NOREPINEPHRINE 8 MG/D5W 250 ML 8 MG/250 ML BAG 45 MG IV CONT (13:51)
[2020-01-08] MEDS: FENTANYL 2,500MCG/NS250ML(*CRX 2,500 MCG/250 ML BAG 12.5 MCG IV CONT (13:53)
[2020-01-08 14:02] LABS: Band Neutrophils Percent 3 % (0-6); Lymphocytes Absolute Manual 1.82 K/mm3 (1.1-4.5); Monocytes Absolute Manual 0.36 K/mm3 (0.1-0.90); Monocytes Percent Manual 7 % (3-9); Neutrophils Absolute Manual 3.01 K/mm3 (1.3-6.7); Neutrophils Percent Manual 55 % (46-73); Nucleated Red Blood Cells 20 %; Total Cells Counted 100
[2020-01-08 14:03] LABS: Anisocytosis 1+ (NORMAL); Hypochromasia 1+ (NORMAL); Platelet Estimate Decreased (Adequate)
[2020-01-08] MEDS: IPRATROPIUM BR 0.02% INH SOLN 0.5 MG/2.5 ML VIAL INHALATION (15:01)
[2020-01-08] MEDS: LORazepam INJ (*CRX) 2 MG/ML VIAL IV PUSH (17:32)
[2020-01-08] MEDS: MORPHINE SULFATE (*CRX) 4 MG/ML INJ 5 MG IV PUSH (17:32)
--- NOTE | 2020-01-08 18:14 | P.DN_ITS ---
Discharge Sum: Prov Provider Primary care physician: Devin Pastrana MD Admitting provider: Dr. Lomeli; Resumed care by Dr. 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 firer glost kiln, Dr. Lomeli admitted the patient and patient was taken directly to cardiac catheterization technician and found to have distal LM acute thrombotic occlusion. PCI with stenting to distal LM and PTCA of ostial LCx were successful. Patient was hypotensive and in cardiogenic shock. IABP was placed to support cardiac output. Poor prognosis. Patient was treated with heparin drip, integrillin drip, dual antiplatelets with aspirin and Brilinta. Lactic acid was elevated. Following cardiac cath, patient was admitted to ICU where the care was essentially given by the patternmaker plaster and plastic, Dr. Pathak. Levophed drip and Vasopressin, and Michael-Synephrine drips given to maintain MAP >70 mmHg and adequate organ perfusion. An arterial line placed that showed IABP pressure did not correlate and IABP was removed. Patient was also intubated as he went into ARDS with pulmonary edema. Antibiotics given with Vancomycin and Cefipime. Patient developed shock liver, coagulopathy, anemia and thrombocytopenia. I assumed cardiology care of patient on 01/07/20 as patient is my regular cardiology patient. Blood transfusions, platelet transfusion, FFP and Vitamin K given. Patient did not improve clinically as he started having blood in urine, endotracheal tube secretions and ground-glass secretions in OG tube. Patient's daughter, Martita who is patient's POA and patient's had extensive discussion with Dr. Lomeli and Dr. Pathak, and decided to make patient DNR. Then, after more lengthy discussions, Ezio and family decided to withdraw support. Patient was extubated and Levophed and Vasopressin drips discontinued, patient given Morphin 5 mg IV and patient on 01/08/20 at 17:48, 16 minutes after support were withdrawn. Cause of : Cardiogenic shock related to acute myocardial infarction of left main coronary artery. Additional Data Attending physician: Vincent Serna DO
--- NOTE | 2020-01-08 19:16 | PC.NURSE ---
Notified Joey at [employer] office that patient's family wishes for patient to go to [facility] home. Spoke with Tomas at [facility] and they will be here in the am to pick him up. Security updated.
[2020-01-14 07:36] LABS: Lactic Acid Reflex 5.2 mmol/L (0.7-2.1)
== END 2020-01-08 17:48 | disposition expired | DRG 270 ==
LOC: ANHED 04:28 → ANHSURGERY 04:48 → ANHICU 08:25 → ANHED 01-21 09:29 → ANHSURGERY 01-21 09:29 → ANHICU 01-21 09:29
PROVIDERS: Internal Medicine; Internal Medicine Cardiovascular Disease; Nurse Practitioner Adult Health; Admitting Provider Internal Medicine Cardiovascular Disease; Emergency Provider Emergency Medicine; PCP Emergency Medicine; Visit Provider Internal Medicine Cardiovascular Disease
PROC: 4A023N7 Measurement of Cardiac Sampling and Pressure, Left Heart, Percutaneous Approach (ICD-10-PCS; CPT 93452; principal; 2020-01-05 04:45)
PROC: 5A02210 Assistance with Cardiac Output using Balloon Pump, Continuous (ICD-10-PCS; 2020-01-05 04:45)
PROC: 5A02210 Assistance with Cardiac Output using Balloon Pump, Continuous (ICD-10-PCS; 2020-01-05 04:45)
PROC: 02703ZZ Dilation of Coronary Artery, One Artery, Percutaneous Approach (ICD-10-PCS; CPT 92920; 2020-01-05 04:45)
PROC: 5A02210 Assistance with Cardiac Output using Balloon Pump, Continuous (ICD-10-PCS; 2020-01-05 04:45)
DX: I21.3 ST elevation (STEMI) myocardial infarction of unspecified site (principal); J81.0 Acute pulmonary edema; K72.00 Acute and subacute hepatic failure without coma; J80 Acute respiratory distress syndrome; C34.90 Malignant neoplasm of unspecified part of unspecified bronchus or lung; C79.51 Secondary malignant neoplasm of bone; C79.31 Secondary malignant neoplasm of brain; D68.9 Coagulation defect, unspecified; R57.0 Cardiogenic shock; J44.9 Chronic obstructive pulmonary disease, unspecified; Z20.828 Contact with and (suspected) exposure to other viral communicable diseases; Z66 Do not resuscitate; D69.6 Thrombocytopenia, unspecified; D64.9 Anemia, unspecified; E78.5 Hyperlipidemia, unspecified; F17.200 Nicotine dependence, unspecified, uncomplicated; Z79.82 Long term (current) use of aspirin; Z79.899 Other long term (current) drug therapy
CPT/HCPCS: 31500; 33967; 36415; 36430; 36600; 70450; 71045; 80053; 80061; 81001; 82375; 82805; 83050; 83605; 83735; 84100; 84484; 85025; 85027; 85049; 85055; 85380; 85384; 85610; 85730; 86850; 86900; 86901; 86923; 87040; 87086; 87635; 92920; 92978; 93005; 93458; 94002; 94003; 94640; 94660; 99285; A9270; C1725; C1751; C1753; C1757; C1769; C1874; C1887; C1894; C9606; C9803; J0692; J1327; J1644; J1940; J2060; J2250; J2270; J2370; J2405; J3010; J3370; J3430; J3475; J7030; J7040; J7050; J7060; P9016; P9017; P9034; U0003